=== PATIENT | female | born 1985 | race Hispanic/Latino ===

== ENCOUNTER 2022-01-03 09:07 | Outpatient (CLI) | payer OTHER | END 2022-01-03 09:08 | disposition home or self-care (01) | LOC: CSHULT 09:07 | PROVIDERS: ATTEND Family Medicine | DX: O09.522 Supervision of elderly multigravida, second trimester (principal); Z3A.22 22 weeks gestation of pregnancy | CPT/HCPCS: 76805 ==

== ENCOUNTER 2022-03-24 12:03 | Outpatient (CLI) | payer OTHER | END 2022-03-24 12:04 | disposition home or self-care (01) | LOC: CSHRAD 12:03 | PROVIDERS: ATTEND Family Medicine | DX: O24.410 Gestational diabetes mellitus in pregnancy, diet controlled (principal); Z3A.33 33 weeks gestation of pregnancy | CPT/HCPCS: 76815 ==

== ENCOUNTER 2022-04-19 21:25 | Day surgery (SDC) | payer OTHER ==
[2022-04-19] MEDS ORDERED: hydrALAZINE 20 MG/ML VIAL SLOW IVP PRN (22:32)
[2022-04-20 00:18] LABS: SARS-CoV-2 NAA Rapid Test Not Detected (NotDetected)
== END 2022-04-20 00:48 | disposition home or self-care (01) ==
LOC: CSHLD/OP 21:25
PROVIDERS: ATTEND Family Medicine
DX: O47.03 False labor before 37 completed weeks of gestation, third trimester (principal); O99.283 Endocrine, nutritional and metabolic diseases complicating pregnancy, third trimester; E03.9 Hypothyroidism, unspecified; Z3A.36 36 weeks gestation of pregnancy; Z79.899 Other long term (current) drug therapy; Z88.1 Allergy status to other antibiotic agents; Z91.018 Allergy to other foods; Z20.822 Contact with and (suspected) exposure to COVID-19; Z98.890 Other specified postprocedural states
CPT/HCPCS: 99283

== ENCOUNTER 2022-04-25 20:46 | Day surgery (SDC) | payer OTHER ==
[2022-04-25 23:02] VITALS: BMI 48.6
[2022-04-25] MEDS ORDERED: Ondansetron PF 4 MG/2 ML Vial IVP PRN (23:08)
[2022-04-25] MEDS ORDERED: Promethazine HCl 25 MG/ML VIAL IM PRN (23:08)
[2022-04-25] MEDS ORDERED: hydrALAZINE 20 MG/ML VIAL SLOW IVP PRN (23:08)
[2022-04-26 00:13] LABS: Hemoglobin 12.2 g/dL (12.0-15.5); Mean Corpuscular Volume 91.1 fl (81.6-98.3); Mean Platelet Volume 10.6 fl (7.4-10.4); Platelet Count 248 10x3/uL (150-450); RBC Distribution Width 15.1 % (11.5-14.5); Red Blood Cell (RBC) Count 3.94 10x6/uL (3.90-5.03); White Blood Cell (WBC) Count 9.3 10x3/uL (3.5-10.5)
[2022-04-26 00:33] LABS: ALT (SGPT) 24 U/L (8-55); AST (SGOT) 22 U/L (5-34); Albumin 3.1 g/dL (3.5-5.0); Alkaline Phosphatase 162 U/L (40-110); Anion Gap 14 mmol/L (10-20); BUN (Urea Nitrogen) 18 mg/dL (7.0-18.7); Bilirubin, Total 0.3 mg/dL (0.2-1.2); Calc. Creatinine Clearance 143 mL/min (70-130); Calcium 9.2 mg/dL (7.8-10.44); Carbon Dioxide 19 mmol/L (22-29); Chloride 109 mmol/L (98-107); Estimated GFR 101; Globulin 3.5 g/dL (2.4-3.5); Glucose 89 mg/dL (70-105); Potassium 3.9 mmol/L (3.5-5.1); Protein, Total 6.6 g/dL (6.0-8.3); Sodium 138 mmol/L (136-145)
[2022-04-26 00:49] LABS: Syphilis Antibody Nonreactive (Nonreactive); Syphilis Antibody Index 0.03 S/CO (<1.00 Non-Reactive)
[2022-04-26 00:50] LABS: HBSAg Index 0.19 S/CO (0-0.99); Hep B Surf Ag Non-Reactive S/CO (NonReactive)
[2022-04-26] MEDS ORDERED: Moisturizing Cream (Eucerin) 113 GM JAR TOP PRN (01:06)
[2022-04-26] MEDS ORDERED: diphenhydrAMINE 25 MG CAP PO PRN (04:38)
== END 2022-04-26 07:50 | disposition home or self-care (01) ==
LOC: CSHERS 20:46 → CSHLD/OP 22:08
PROVIDERS: ATTEND Family Medicine
DX: O99.713 Diseases of the skin and subcutaneous tissue complicating pregnancy, third trimester (principal); L29.9 Pruritus, unspecified; O24.410 Gestational diabetes mellitus in pregnancy, diet controlled; O99.283 Endocrine, nutritional and metabolic diseases complicating pregnancy, third trimester; E03.9 Hypothyroidism, unspecified; O99.213 Obesity complicating pregnancy, third trimester; E66.01 Morbid (severe) obesity due to excess calories; Z3A.37 37 weeks gestation of pregnancy; Z79.890 Hormone replacement therapy; Z79.899 Other long term (current) drug therapy; Z88.2 Allergy status to sulfonamides; Z91.018 Allergy to other foods
CPT/HCPCS: 36415; 76819; 80053; 82239; 85027; 86780; 86850; 86900; 86901; 87340; 99281; 99282

== ENCOUNTER 2022-05-06 04:55 | Inpatient (IN) | payer OTHER ==
[2022-05-06] MEDS ORDERED: Azithromycin 500 MG in Sodium Chloride 0.9% 250 ML 250 ML IVPB SCH (05:52)
[2022-05-06] MEDS ORDERED: Promethazine HCl 25 MG/ML VIAL IM PRN ×3 (05:52→12:59)
[2022-05-06] MEDS ORDERED: Famotidine/PF 20 mg/2ml Vial SLOW IVP PRN (05:52)
[2022-05-06] MEDS ORDERED: hydrALAZINE 20 MG/ML VIAL SLOW IVP PRN ×2 (05:52→12:59)
[2022-05-06] MEDS ORDERED: Bicitra 30 ML UDCUP PO PRN (05:52)
[2022-05-06] MEDS ORDERED: Ondansetron PF 4 MG/2 ML Vial IVP PRN ×3 (05:52→12:59)
[2022-05-06] MEDS ORDERED: Lactated Ringer's 1,000 ML IV SCH (06:00)
[2022-05-06 06:10] VITALS: BMI 50.1
[2022-05-06 06:13] LABS: Mean Corpuscular HGB CONC 33.8 g/dL (32.0-36.0); Mean Corpuscular Volume 91.9 fl (81.6-98.3); Mean Platelet Volume 11.6 fl (7.4-10.4); Platelet Count 208 10x3/uL (150-450); RBC Distribution Width 15.2 % (11.5-14.5); Red Blood Cell (RBC) Count 4.19 10x6/uL (3.90-5.03); White Blood Cell (WBC) Count 10.6 10x3/uL (3.5-10.5)
[2022-05-06] MEDS ORDERED: CEFAZOLIN 3 GM, Admixture Fee 1 EACH in Sodium Chloride 0.9% 100 ML IVPB SCH (06:30)
[2022-05-06 06:33] LABS: ALT (SGPT) 15 U/L (8-55); AST (SGOT) 17 U/L (5-34); Albumin 3.3 g/dL (3.5-5.0); Alkaline Phosphatase 211 U/L (40-110); Anion Gap 14 mmol/L (10-20); BUN (Urea Nitrogen) 16 mg/dL (7.0-18.7); Bilirubin, Total 0.4 mg/dL (0.2-1.2); Calc. Creatinine Clearance 189 mL/min (70-130); Carbon Dioxide 17 mmol/L (22-29); Chloride 109 mmol/L (98-107); Estimated GFR 118; Globulin 3.1 g/dL (2.4-3.5); Glucose 80 mg/dL (70-105); Potassium 4.3 mmol/L (3.5-5.1); Protein, Total 6.4 g/dL (6.0-8.3); Sodium 136 mmol/L (136-145)
[2022-05-06 06:52] LABS: HBSAg Index 0.16 S/CO (0-0.99); Hep B Surf Ag Non-Reactive S/CO (NonReactive)
[2022-05-06 06:53] LABS: SARS-CoV-2 NAA Rapid Test Not Detected (NotDetected)
[2022-05-06 06:54] LABS: Syphilis Antibody Nonreactive (Nonreactive); Syphilis Antibody Index 0.03 S/CO (<1.00 Non-Reactive)
[2022-05-06] MEDS ORDERED: Morphine PF 10 MG/10 ML VIAL ONE (07:29)
[2022-05-06] MEDS ORDERED: Fentanyl 100 MCG/2 ML VIAL ONE (07:29)
[2022-05-06] MEDS ORDERED: Phenylephrine 40 MG/NS 250 ML 250 ML ONE (07:30)
[2022-05-06] MEDS ORDERED: Dexamethasone 4 mg/ml Vial ONE (07:30)
[2022-05-06] MEDS ORDERED: Oxytocin 10 UNITS/ML VIAL ONE ×2 (07:30→08:18)
[2022-05-06] MEDS ORDERED: ePHEDrine Sulfate 50 MG/10 ML VIAL ONE (07:30)
[2022-05-06] MEDS ORDERED: Ketorolac Tromethamine 30 MG/ML VIAL ONE (07:30)
[2022-05-06] MEDS ORDERED: Ondansetron PF 4 MG/2 ML Vial ONE (07:30)
[2022-05-06 07:35] LABS: HIV (1/2) Antibody/Antigen Non-Reactive (NonReactive); HIV 1/2 INDEX 0.14 S/CO (<1.00)
[2022-05-06] MEDS ORDERED: Promethazine HCl 25 MG/ML VIAL ONE (08:02)
[2022-05-06] MEDS ORDERED: Naloxone HCl 0.4 mg/ml Vial IV PRN (10:36)
[2022-05-06] MEDS ORDERED: diphenhydrAMINE 50 MG/ML VIAL IVP PRN (10:36)
[2022-05-06] MEDS ORDERED: Promethazine HCl 25 MG SUPP PR PRN (10:36)
[2022-05-06] MEDS ORDERED: Meperidine HCl/PF 25 MG/ML VIAL SLOW IVP PRN (10:36)
[2022-05-06] MEDS ORDERED: Naloxone HCl 0.4 mg/ml Vial IVP PRN ×2 (10:36)
[2022-05-06] MEDS ORDERED: Moisturizing Cream (Eucerin) 113 GM JAR TOP PRN (10:36)
[2022-05-06] MEDS ORDERED: Ketorolac Tromethamine 30 MG/ML VIAL IVP PRN (10:36)
[2022-05-06] MEDS ORDERED: Ondansetron HCl/PF 4 MG/2 ML Vial IVP PRN (10:36)
[2022-05-06] MEDS ORDERED: L&D-Morphine 4 MG/ML VIAL SLOW IVP PRN (10:36)
[2022-05-06] MEDS ORDERED: Fentanyl 100 MCG/2 ML VIAL SLOW IVP PRN (10:36)
[2022-05-06] MEDS ORDERED: Communication Order-Pharmacy FS SCH (10:45)
[2022-05-06] MEDS ORDERED: Ketorolac Tromethamine 30 MG/ML VIAL IVP SCH (10:45)
[2022-05-06] MEDS ORDERED: Boostrix 0.5 ML (Tdap) VIAL (>/=7 yrs of age) IM ONE (12:59)
[2022-05-06] MEDS ORDERED: Lanolin Ointment 7 GM TUBE TOP PRN (12:59)
[2022-05-06] MEDS ORDERED: Bisacodyl 10 MG SUPP PR PRN (12:59)
[2022-05-06] MEDS ORDERED: diphenhydrAMINE 25 MG CAP PO PRN (12:59)
[2022-05-06] MEDS: Ketorolac Tromethamine 30 MG/ML VIAL IVP SCH ×3 (15:48→23:24)
[2022-05-06] MEDS: Docusate 100 MG CAP PO SCH (21:33)
[2022-05-06] MEDS: Ferrous Sulfate 325 MG TAB PO SCH (21:33)
[2022-05-06] MEDS ORDERED: HYDROcodone/Acetaminophen 5/325 mg Tablet PO PRN (23:00)
[2022-05-07 04:39] LABS: Hemoglobin 9.9 g/dL (12.0-15.5); Mean Corpuscular HGB CONC 32.8 g/dL (32.0-36.0); Mean Corpuscular Hemoglobin 30.2 pg (27.0-33.0); Mean Corpuscular Volume 92.1 fl (81.6-98.3); Mean Platelet Volume 11.1 fl (7.4-10.4); Platelet Count 182 10x3/uL (150-450); RBC Distribution Width 15.2 % (11.5-14.5); Red Blood Cell (RBC) Count 3.28 10x6/uL (3.90-5.03); White Blood Cell (WBC) Count 13.1 10x3/uL (3.5-10.5)
[2022-05-07] MEDS: Ketorolac Tromethamine 30 MG/ML VIAL IVP SCH ×2 (05:33→10:55)
[2022-05-07] MEDS: Docusate 100 MG CAP PO SCH ×2 (08:01→22:00)
[2022-05-07] MEDS: HYDROcodone/Acetaminophen 5/325 mg Tablet PO PRN ×3 (08:01→16:41)
[2022-05-07] MEDS: Prenatal Vitamin 1 TAB PO SCH (08:01)
[2022-05-07] MEDS: Ferrous Sulfate 325 MG TAB PO SCH ×2 (08:01→22:00)
[2022-05-07] MEDS: Simethicone Chewable 80 MG TAB PO PRN (13:27)
[2022-05-07] MEDS: Ibuprofen 800 MG TAB PO SCH ×2 (13:27→22:00)
[2022-05-08] MEDS: Ibuprofen 800 MG TAB PO SCH ×3 (05:56→20:59)
[2022-05-08] MEDS: Ferrous Sulfate 325 MG TAB PO SCH ×2 (08:43→20:59)
[2022-05-08] MEDS: HYDROcodone/Acetaminophen 5/325 mg Tablet PO PRN ×2 (08:43→18:30)
[2022-05-08] MEDS: Docusate 100 MG CAP PO SCH ×2 (08:44→20:59)
[2022-05-08] MEDS: Prenatal Vitamin 1 TAB PO SCH (08:44)
[2022-05-09] MEDS: Ibuprofen 800 MG TAB PO SCH ×2 (05:38→13:13)
[2022-05-09 08:03] VITALS: BP 91/52; TEMP 98.6
[2022-05-09] MEDS: Docusate 100 MG CAP PO SCH (08:29)
[2022-05-09] MEDS: Prenatal Vitamin 1 TAB PO SCH (08:29)
[2022-05-09] MEDS: HYDROcodone/Acetaminophen 5/325 mg Tablet PO PRN ×2 (08:29→13:12)
[2022-05-09] MEDS: Ferrous Sulfate 325 MG TAB PO SCH (08:29)
[2022-05-09] MEDS: Simethicone Chewable 80 MG TAB PO PRN (08:30)
== END 2022-05-09 13:15 | disposition home or self-care (01) | DRG 788 ==
LOC: CSHLD 04:55 → CSHPP 11:00
PROVIDERS: ADMIT Family Medicine; ATTEND Family Medicine
PROC: 10D00Z1 Extraction of Products of Conception, Low, Open Approach (ICD-10-PCS; principal; 2022-05-06)
DX: O34.211 Maternal care for low transverse scar from previous cesarean delivery (principal); Z20.822 Contact with and (suspected) exposure to COVID-19; Z3A.39 39 weeks gestation of pregnancy; Z37.0 Single live birth; E66.9 Obesity, unspecified; O24.420 Gestational diabetes mellitus in childbirth, diet controlled; O99.214 Obesity complicating childbirth; O34.13 Maternal care for benign tumor of corpus uteri, third trimester; D25.2 Subserosal leiomyoma of uterus; Z88.1 Allergy status to other antibiotic agents; Z91.018 Allergy to other foods; E03.9 Hypothyroidism, unspecified; Z79.890 Hormone replacement therapy; O99.284 Endocrine, nutritional and metabolic diseases complicating childbirth
CPT/HCPCS: 36415; 51702; 80053; 85027; 86780; 86850; 86900; 86901; 87340; 87389; J0456; J1100; J1885; J2274; J2405; J2550; J2590; J3010; J3490; J7050; S0028; U0002